=== PATIENT | male | born 1950 | race Caucasian/White ===

== ENCOUNTER 2020-08-18 21:09 | Inpatient (IN) | payer MEDICARE ==
[~2020-08-18] VITALS: Ht 172.7 cm; Wt 66.0 kg
[2020-08-18] MEDS ORDERED: OMNIPAQUE 350 MG/ML, 100ML BOTTLE ONE (21:30)
--- NOTE | 2020-08-18 23:03 | NUR ---
PT HAD LABS AT [facility] WITH A CREAT 127/ BUN 44
[2020-08-19] MEDS ORDERED: MORPHINE SULFATE 4 MG/ML, 1ML ONE (01:23)
[2020-08-19] MEDS ORDERED: ONDANSETRON 2MG/ML, 2ML ONE (01:23)
[2020-08-19] MEDS ORDERED: ONDANSETRON 2MG/ML, 2ML IVPush ONE (01:30)
[2020-08-19] MEDS ORDERED: MORPHINE SULFATE 4 MG/ML, 1ML IVPush PRN (01:30)
[2020-08-19] MEDS ORDERED: MELATONIN 5 MG TABLET PO PRN (03:00)
[2020-08-19] MEDS ORDERED: ACETAMINOPHEN 325 MG TABLET PO PRN (03:00)
[2020-08-19] MEDS ORDERED: morphine SULFATE 10 MG/ML, 1ML IVPush PRN (03:00)
[2020-08-19] MEDS ORDERED: ENALAPRILAT 1.25 MG/ML, 2ML IVPush PRN (03:00)
[2020-08-19 03:32] LABS: TROPONIN I 0.704 ng/mL (0.000-0.045)
[2020-08-19 03:36] LABS: CHOL/HDL RATIO 3.4; LDL/HDL RATIO 1.8 (0.5-3.0)
[2020-08-19] MEDS: ONDANSETRON ODT 4 MG PO PRN ×2 (03:43→16:03)
[2020-08-19 04:09] VITALS: BP 125/71
[2020-08-19 06:49] VITALS: BP 103/61
[2020-08-19] MEDS ORDERED: HEPARIN 5,000 UNITS/ML, 1ML IV ONE (07:00)
[2020-08-19 07:53] LABS: TROPONIN I 0.904 ng/mL (0.000-0.045)
[2020-08-19 07:59] LABS: MEAN CORPUSCULAR HEMOGLOBIN 29.2 pg (27.5-34.5); MEAN CORPUSCULAR HGB CONC 32.3 g/dL (33.2-36.2); MEAN PLATELET VOLUME 7.8 fL (7.4-10.4); PLATELET COUNT 233 x10^3/uL (130-400); RED BLOOD COUNT 2.63 x10^6/uL (4.38-5.82); RED CELL DISTRIBUTION WIDTH 18.7 % (9.4-14.8)
[2020-08-19 08:10] LABS: ALBUMIN 2.7 g/dL (3.4-5.0); ANION GAP 8 mmol/L (5-15); CALCIUM 8.9 mg/dL (8.5-10.1); CHLORIDE 108 mmol/L (98-107); CREATININE 1.13 mg/dL (0.7-1.3)
[2020-08-19] MEDS: HEPARIN 25,000 UNITS/250ML PMX 250 ML IV PRN (08:13)
[2020-08-19 08:33] LABS: BAND#(MANUAL) 5.36 x10^3/uL; BANDS%(MANUAL) 14 % (0-7); SEG#(MANUAL) 30.26 x10^3/uL (1.8-6.8); SEGS% (MANUAL) 79 % (42-75)
[2020-08-19 08:34] LABS: LYMPH#(MANUAL) 1.15 x10^3/uL (1-3.4); LYMPHS% (MANUAL) 3 % (22-44); METAMYELOCYTES# (MANUAL) 0.38 x10^3/uL (0-0); METAMYELOCYTES% (MANUAL) 1 % (0-1); MONOS#(MANUAL) 1.15 x10^3/uL (0.3-2.7); MONOS% (MANUAL) 3 % (2-9)
[2020-08-19 08:35] LABS: <PLATELET ESTIMATE> ADEQUATE; <PLT MORPHOLOGY> NORMAL PLT MORPH; ANISOCYTOSIS 1+
[2020-08-19] MEDS ORDERED: ATORVASTATIN 80 MG TABLET PO SCH ×2 (11:30→21:00)
[2020-08-19] MEDS ORDERED: PROC10TA2 PO (12:46)
[2020-08-19] MEDS ORDERED: POLY17PO5 PO (12:46)
[2020-08-19] MEDS ORDERED: BISA-49 PO (12:46)
[2020-08-19] MEDS ORDERED: LORA-445 PO (12:46)
[2020-08-19] MEDS ORDERED: LORA10CA PO (12:46)
[2020-08-19 14:55] VITALS: BP 102/61
[2020-08-19] MEDS: HEPARIN 5,000 UNITS/ML, 1ML IV PRN (15:05)
[2020-08-19] MEDS ORDERED: POLYETHYLENE GLYCOL 17 GM PACKET PO ONE (15:30)
[2020-08-19] MEDS ORDERED: PROCHLORPERAZINE 10MG TABLET PO PRN (16:00)
[2020-08-19] MEDS ORDERED: LORazepam 0.5MG TABLET PO PRN (16:00)
[2020-08-19] MEDS ORDERED: POLYETHYLENE GLYCOL 17 GM PACKET PO PRN (16:00)
[2020-08-19] MEDS ORDERED: BISACODYL 5 MG EC TABLET PO PRN (16:00)
[2020-08-19] MEDS: METOPROLOL TARTRATE 25 MG TAB PO SCH (17:43)
[2020-08-19 18:44] VITALS: BP 112/67
[2020-08-20 01:14] LABS: MEAN CORPUSCULAR HEMOGLOBIN 29.4 pg (27.5-34.5); MEAN CORPUSCULAR HGB CONC 32.6 g/dL (33.2-36.2); MEAN PLATELET VOLUME 7.4 fL (7.4-10.4); PLATELET COUNT 166 x10^3/uL (130-400); RED BLOOD COUNT 2.51 x10^6/uL (4.38-5.82); RED CELL DISTRIBUTION WIDTH 17.2 % (9.4-14.8)
[2020-08-20 01:20] LABS: ANION GAP 6 mmol/L (5-15); CALCIUM 8.5 mg/dL (8.5-10.1); CHLORIDE 107 mmol/L (98-107)
[2020-08-20 01:30] LABS: FREE T4 (FREE THYROXINE) 1.23 ng/dL (0.76-1.46)
[2020-08-20 01:44] VITALS: BP 105/69
[2020-08-20] MEDS: HEPARIN 5,000 UNITS/ML, 1ML IV PRN ×3 (01:49→16:20)
[2020-08-20 02:18] LABS: BAND#(MANUAL) 3.16 x10^3/uL; BANDS%(MANUAL) 11 % (0-7); EOS#(MANUAL) 0.29 x10^3/uL (0.0-0.4); EOS% (MANUAL) 1 % (1-7); LYMPH#(MANUAL) 1.44 x10^3/uL (1-3.4); LYMPHS% (MANUAL) 5 % (22-44); MONOS#(MANUAL) 0.57 x10^3/uL (0.3-2.7); MONOS% (MANUAL) 2 % (2-9); SEG#(MANUAL) 23.25 x10^3/uL (1.8-6.8); SEGS% (MANUAL) 81 % (42-75)
[2020-08-20 02:19] LABS: ANISOCYTOSIS 1+
[2020-08-20 02:20] LABS: <PLATELET ESTIMATE> ADEQUATE; <PLT MORPHOLOGY> NORMAL PLT MORPH; ROULEAUX 1+
[2020-08-20] MEDS ORDERED: ASPIRIN 81 MG TABLET EC PO SCH (06:00)
[2020-08-20 06:47] VITALS: BP 109/68
[2020-08-20] MEDS ORDERED: LORATADINE 10 MG TABLET PO SCH (09:00)
[2020-08-20] MEDS: METOPROLOL TARTRATE 25 MG TAB PO SCH ×2 (09:10→17:59)
[2020-08-20] MEDS: HEPARIN 25,000 UNITS/250ML PMX 250 ML IV PRN (09:48)
[2020-08-20] MEDS ORDERED: REGADENOSON 0.4 MG/5 ML SYRINGE ONE (10:46)
[2020-08-20] MEDS: ONDANSETRON 2MG/ML, 2ML IVPush PRN ×2 (14:27→14:30)
[2020-08-20 14:32] VITALS: BP 108/66
[2020-08-20] MEDS: ONDANSETRON ODT 4 MG PO PRN (14:34)
[2020-08-20] MEDS ORDERED: ENOXAPARIN 40 MG/0.4 ML SQ SCH (17:00)
== END 2020-08-20 20:13 | disposition home or self-care (01) | DRG 281 ==
LOC: ED 23:07 → INTOOBSV 08-19 02:15 → OBSVTOIN 08-19 02:15 → EDIP 08-19 02:15 → 5SO 08-19 03:27
PROVIDERS: ADMIT Hospitalist; ATTEND Internal Medicine
DX: I21.4 Non-ST elevation (NSTEMI) myocardial infarction (principal); N13.30 Unspecified hydronephrosis; Q60.0 Renal agenesis, unilateral; D72.829 Elevated white blood cell count, unspecified; E78.5 Hyperlipidemia, unspecified; K76.9 Liver disease, unspecified; T45.8X5A Adverse effect of other primarily systemic and hematological agents, initial encounter; Z85.46 Personal history of malignant neoplasm of prostate; Z85.51 Personal history of malignant neoplasm of bladder; Z90.5 Acquired absence of kidney; Z90.79 Acquired absence of other genital organ(s); Z92.21 Personal history of antineoplastic chemotherapy; Z90.49 Acquired absence of other specified parts of digestive tract; Z82.49 Family history of ischemic heart disease and other diseases of the circulatory system; D64.9 Anemia, unspecified
CPT/HCPCS: 36415; 71275; 78452; 80048; 80061; 80069; 83735; 84439; 84443; 84484; 85025; 85520; 93005; 93017; 93306; 96374; 96375; G0378; J1644; J1650; J2405; J2785; Q0162; Q9967; A9502; J2270